=== PATIENT | male | born 1975 ===

== ENCOUNTER 2018-10-31 19:53 | Emergency (ER) | payer OTHER ==
[2018-10-31 20:07] VITALS: BP 124/80
--- NOTE | 2018-10-31 20:19 | UC ---
Skin Complaint HPI - HPI Summary HPI Summary: 43 y/o male presents to the urgent care c/o RT distal lower lerma w/ a painful blister s/p possible insect bite. Pt reports he was in [facility] over the weekend and he had several insect bite. This morning he noticed the blister. However, there are other 2 blister which have a yellowish crusting drainage. Pain is mild 3/10 at touch. he has not applied any medication to alleviate symptoms. Pt denies fever, Hx of MRSA, calf pain, SOB, chest pain, abdominal pain, N/V/D - History of Current Complaint Chief Complaint: UCSkin Time Seen by Provider: 10/31/18 20:13 Stated Complaint: BUG BITE Hx Obtained From: Patient Onset/Duration: Gradual Onset, Lasting Days - 5 days of insect bite, Still Present, Worse Since - one blister in the RT distal lerma this morning Skin Exposure Onset/Duration: Days Ago - 5 days Timing: Constant Onset Severity: Mild Current Severity: Mild Pain Intensity: 4 Pain Scale Used: 0-10 Numeric Location: Discrete - Rt lower distal lerma w/ insect bite and blister Character: Redness, Painful Aggravating Factor(s): Touch Alleviating Factor(s): Nothing Associated Signs & Symptoms: Positive: Rash - Rt lower lerma w/ a painful blister s/p insect bite, Drainage - clear, Tenderness. Negative: Fever, Chills Related History: Possible Reaction to: Insect - Allergy/Home Medications Allergies/Adverse Reactions: Allergies Allergy/AdvReac Type Severity Reaction Status Date / Time adhesive tape Allergy Hives Verified 10/31/18 20:07 blue cheese Allergy GI Upset Uncoded 10/31/18 20:07 Home Medications: Home Medications Aspirin 81 mg CHEW TAB* 81 mg PO DAILY 10/31/18 [History Confirmed 10/31/18] Dulaglutide [Trulicity] 1.5 mg PO WEEKLY 10/31/18 [History Confirmed 10/31/18] Insulin Glargine,Hum.rec.anlog [Basaglar Kwikpen U-100] 100 unit SUBCUT DAILY [History Confirmed 10/31/18] Lisinopril [Lisinopril 2.5 MG-] 5 mg PO DAILY 10/31/18 [History Confirmed ] Metoprolol Lock/Hydrochlorothiaz [Metoprolol ER-Hctz 25-12.5 mg] 50 mg PO BID [History Confirmed 10/31/18] Omeprazole 20 mg PO DAILY 10/31/18 [History Confirmed 10/31/18] metFORMIN* [Glucophage 1000 MG TAB *] 1,000 mg PO BID 10/31/18 [History Confirmed 10/31/18] PMH/Surg Hx/FS Hx/Imm Hx Previously Healthy: Yes Endocrine History: Diabetes Cardiovascular History: Hypertension - Surgical History Surgical History: Yes Surgery Procedure, Year, and Place: stent - Family History Known Family History: Positive: Cardiac Disease, Hypertension, Diabetes - Social History Occupation: Employed Full-time Lives: With Family Alcohol Use: Rare Substance Use Type: None Smoking Status (MU): Never Smoked Tobacco Review of Systems All Other Systems Reviewed And Are Negative: Yes Constitutional: Positive: Negative Skin: Positive: Rash - Rt distal lerma w/ painful blister s/p insect bite, Other - other small insect bite in the arm and left leg Eyes: Positive: Negative ENT: Positive: Negative Respiratory: Positive: Negative Cardiovascular: Positive: Negative Gastrointestinal: Positive: Negative Genitourinary: Positive: Negative Motor: Positive: Negative Neurovascular: Positive: Negative Musculoskeletal: Positive: Negative Neurological: Positive: Negative Psychological: Positive: Negative Is Patient Immunocompromised?: No Physical Exam - Summary Physical Exam Summary: Vital Signs Reviewed: Yes General: well appearing, well nourished obese male in no acute apparent pain distress, sitting comfortably on examining table Eye Exam: Normal Eyes: Positive: Conjunctiva Clear - PERRLA< EOMI, fundi grossly normal ENT: Positive: Normal ENT inspection, Hearing grossly normal, Pharynx normal, TMs normal Neck: Positive: Supple, Nontender, No Lymphadenopathy Respiratory: Positive: Chest non-tender, Lungs clear, Normal breath sounds, No respiratory distress Cardiovascular: Positive: RRR, No Murmur, Pulses Normal, Brisk Capillary Refill Abdomen Description: Positive: Nontender, No Organomegaly, Soft. Negative: CVA Tenderness (R), CVA Tenderness (L) Bowel Sounds: Positive: Present Musculoskeletal: Positive: Strength Intact, ROM Intact, No Edema Neurological: Positive: Alert, Muscle Tone Normal Psychological Exam: Normal Skin: Positive: Positive small erythematous patch w/ indistinct borders, warm and tender to palpation, w/ a central intact blister w/ clear drainage observed. about 0.5cm x 0.5cm in size and surrounding erythema. pulses WNL, capillary refill brisk, sensation WNL. scattered insect bite some w/ yellowish drainage in the left leg and B/l arms. Triage Information Reviewed: Yes Vital Signs: Initial Vital Signs Temp 97.8 F 10/31/18 20:02 Pulse 87 10/31/18 20:02 Resp 12 10/31/18 20:02 BP 124/80 10/31/18 20:02 Pulse Ox 99 10/31/18 20:02 Course/Dx - Course Course Of Treatment: 43 y/o male presents to the urgent care c/o RT distal lower lerma w/ a painful blister s/p possible insect bite. Pt reports he was in [facility] over the weekend and he had several insect bite. This morning he noticed the blister. However, there are other 2 blister which have a yellowish crusting drainage. Pain is mild 3/10 at touch. he has not applied any medication to alleviate symptoms. Pt denies fever, Hx of MRSA, calf pain, SOB, chest pain, abdominal pain, N/V/D. Pt w/ cellulitis of the distal RT lower leg s/p insect bite and scattered insect bites some w/ yellowish drainage in the left leg and B/l arms on examination. . Drainage from blister was removed and wound cleaned w/ iodine swabs. bacitracin applied and covered with sterile dressing. Pt Rx Keflex PO, Bactroban topical ointment. Pt advised if not improvement of symptoms to return to the urgent care or f/u with PCP. If redness doubles in size or fever develops despite taking ABX to go immediately to the ER. Pt understood and agreed - Differential Diagnoses - Skin Complaint Differential Diagnoses: Abscess, Cellulitis, Contact Dermatitis, Local Allergic Reaction, Poison Radha, Urticaria - Diagnoses Provider Diagnosis: Insect bite of lower leg, Cellulitis of right lower leg Discharge - Sign-Out/Discharge Documenting (check all that apply): Patient Departure - d/c home All imaging exams completed and their final reports reviewed: No Studies - Discharge Plan Condition: Stable Disposition: HOME Prescriptions: Cephalexin CAP* [Keflex CAP*] 500 mg PO TID #21 cap Mupirocin 2% OINT* [Bactroban 2 % Oint*] 1 applic TOPICAL BID #1 tube Patient Education Materials: Cellulitis (ED) Referrals: Marito Curiel MD [Primary Care Provider] - 3 Days Additional Instructions: 1-Please take Keflex PO full course of Antibiotic. Take yogurt w/ probiotics or Culturelle to protect your GI system. Apply Bactroban topical oint as directed around inset bite 2- If redness and swelling doubles in size after 48 hrs of taking antibiotic and fever develops please go to the ER immediately. 3-Avoid standing for long periods of time or flexing your foot, keep it elevated and keep wound clean and dry. 4-Please F/u with your PCP in 3 days if not improvement of symptoms for further evaluation and treatment. - Billing Disposition and Condition Condition: STABLE Disposition: Home - Attestation Statements Provider Attestation: I was available for consult. This patient was seen by the DANIEL. The patient was not presented to, seen by, or examined by me. -Donavan
== END 2018-10-31 20:45 | disposition home or self-care (01) ==
LOC: UCEAST 19:53
DX: S80.861A Insect bite (nonvenomous), right lower leg, initial encounter (principal); W57.XXXA Bitten or stung by nonvenomous insect and other nonvenomous arthropods, initial encounter; Y92.9 Unspecified place or not applicable; L03.115 Cellulitis of right lower limb; I10 Essential (primary) hypertension; E11.9 Type 2 diabetes mellitus without complications; Z79.82 Long term (current) use of aspirin; Z79.4 Long term (current) use of insulin
CPT/HCPCS: 99212; G0463

== ENCOUNTER 2018-12-02 18:17 | Emergency (ER) | payer OTHER ==
[2018-12-02 18:37] VITALS: BP 154/90
--- NOTE | 2018-12-02 18:38 | UC ---
Skin Complaint HPI - HPI Summary HPI Summary: 43 yo male presents with wound to left lerma. He tells me that on 11/29 he hit his left lerma with the heel of his right shoe and sustained a small abrasion/ open area to the lerma. Since that time the area has been seeming to heal well, but has some surrounding redness and is still painful - he is concerned for infection given his diabetes. He has not been covering the area or applying any creams, but he does have bactroban cream at home from another recent skin infection. Denies fever or chills - History of Current Complaint Chief Complaint: UCLaceration Time Seen by Provider: 12/02/18 18:37 Stated Complaint: LEG LACERATION Onset/Duration: Sudden Onset Onset Severity: Mild Current Severity: Mild Pain Intensity: 1 Pain Scale Used: 0-10 Numeric - Allergy/Home Medications Allergies/Adverse Reactions: Allergies Allergy/AdvReac Type Severity Reaction Status Date / Time adhesive tape Allergy Hives Verified 12/02/18 18:37 blue cheese Allergy GI Upset Uncoded 12/02/18 18:37 Home Medications: Home Medications Insulin Lispro Protamin/Lispro [Humalog Mix 75/25 Kwikpen] 70 unit SC 12/02/18 [ History] PMH/Surg Hx/FS Hx/Imm Hx Endocrine History: Diabetes Cardiovascular History: Hypertension GI/ History: Gastroesophageal Reflux - Surgical History Surgical History: Yes Surgery Procedure, Year, and Place: stent - Family History Known Family History: Positive: Cardiac Disease, Hypertension, Diabetes - Social History Occupation: Employed Full-time Lives: With Family Alcohol Use: Rare Substance Use Type: None Smoking Status (MU): Never Smoked Tobacco Review of Systems All Other Systems Reviewed And Are Negative: Yes Constitutional: Positive: Negative Skin: Positive: Other - Wound left lerma Respiratory: Positive: Negative Cardiovascular: Positive: Negative Neurovascular: Positive: Negative Neurological: Positive: Negative Psychological: Positive: Negative Physical Exam - Summary Physical Exam Summary: GENERAL: NAD. WDWN. No pain distress. SKIN: LEFT lerma: 1.0cm area of skin avulsion with scab. 3mm of surrounding erythema that seems most consistent with granulation tissue. NTTP. No drainage, edema, streaking, or warmth. NECK: Supple. Nontender. No lymphadenopathy. CHEST: No accessory muscle use. Breathing comfortably and in no distress. CV: Pulses intact. Cap refill <2seconds NEURO: Alert. PSYCH: Age appropriate behavior. Triage Information Reviewed: Yes Vital Signs: Initial Vital Signs Temp 97.9 F 12/02/18 18:33 Pulse 101 12/02/18 18:33 Resp 18 12/02/18 18:33 BP 154/90 12/02/18 18:33 Pulse Ox 100 12/02/18 18:33 Vital Signs Reviewed: Yes Course/Dx - Course Course Of Treatment: Wound appears to be healing well. Advised to apply the bactroban ointment he has at home BID and keep covered for 1 week changing the dressing daily. Recheck if develops increased pain, swelling, drainage, redness, or fever. - Diagnoses Provider Diagnosis: Wound of left leg Discharge - Sign-Out/Discharge Documenting (check all that apply): Patient Departure All imaging exams completed and their final reports reviewed: No Studies - Discharge Plan Condition: Stable Disposition: HOME Patient Education Materials: Acute Wound Care (ED) Referrals: Marito Curiel MD [Primary Care Provider] - Additional Instructions: If you develop a fever, shortness of breath, chest pain, new or worsening symptoms - please call your PCP or go to the ED immediately. Your blood pressure was high at todays visit. Please see your primary provider within 4 weeks for recheck and re-evaluation. Use the Mupirocin twice a day to the area and change the dressing daily for 1 week. - Billing Disposition and Condition Condition: STABLE Disposition: Home
== END 2018-12-02 19:11 | disposition home or self-care (01) ==
LOC: UCEAST 18:17
DX: S81.802A Unspecified open wound, left lower leg, initial encounter (principal); W22.8XXA Striking against or struck by other objects, initial encounter; Y92.9 Unspecified place or not applicable; E11.9 Type 2 diabetes mellitus without complications; I10 Essential (primary) hypertension; K21.9 Gastro-esophageal reflux disease without esophagitis
CPT/HCPCS: 99212; G0463